=== PATIENT | female | born 2000 | race Caucasian/White ===

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

== ENCOUNTER → 2019-02-01 | Outpatient (REF) | payer BC ==
[~2019-02-01] MED LIST: FLON1SPR; FLUT11IN INH; GUAISYP5 PO; PROAAER10 INH; ZITHTAB PO
== END ==
LOC: M SFHCLERA 19:50
PROVIDERS: ATTEND Nurse Practitioner Family
DX: J02.9 Acute pharyngitis, unspecified (principal)

== ENCOUNTER → 2019-10-16 | Outpatient (REF) | payer BC | LOC: M SFHCLERA 16:02 | PROVIDERS: ATTEND Physician Assistant | DX: N30.01 Acute cystitis with hematuria (principal) ==

== ENCOUNTER 2020-03-12 22:28 | Emergency (ER) | payer BC, OTHER ==
[~2020-03-12] VITALS: Ht 165.1 cm; Wt 95.8 kg
[2020-03-12] MEDS ORDERED: SPRI28TA PO (22:32)
[2020-03-13] MEDS ORDERED: CETI10CA2 PO (00:07)
[2020-03-13] MEDS ORDERED: AZIT-12 PO (00:07)
[2020-03-13] MEDS ORDERED: FLON1SPR NARES (00:07)
[2020-03-13] MEDS ORDERED: AZITHROMYCIN 250MG TABLET PO ONE (00:15)
[2020-03-13 00:34] VITALS: BP 128/90
== END 2020-03-13 00:36 | disposition home or self-care (01) ==
LOC: M ED 22:28
DX: J01.90 Acute sinusitis, unspecified (principal); J30.89 Other allergic rhinitis; Z79.3 Long term (current) use of hormonal contraceptives; Z88.0 Allergy status to penicillin